=== PATIENT | male | born 1980 | race Caucasian/White ===

== ENCOUNTER 2024-08-23 19:45 | Outpatient (OUT) | payer OTHER, SELFPAY ==
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
== END 2024-08-23 19:46 | disposition home or self-care (01) ==
LOC: SLEEP 19:46
PROVIDERS: PCP Nurse Practitioner Primary Care; Visit Provider Nurse Practitioner Primary Care
DX: G47.33 Obstructive sleep apnea (adult) (pediatric) (principal)
CPT/HCPCS: 95810

== ENCOUNTER 2024-09-19 20:44 | Outpatient (OUT) | payer OTHER, SELFPAY | END 2024-09-19 20:45 | disposition home or self-care (01) | LOC: SLEEP 20:44 | PROVIDERS: PCP Nurse Practitioner Primary Care; Visit Provider Nurse Practitioner Primary Care | DX: G47.33 Obstructive sleep apnea (adult) (pediatric) (principal); G25.81 Restless legs syndrome; F51.01 Primary insomnia | CPT/HCPCS: 95811 ==